=== PATIENT | female | born 1960 | race Caucasian/White ===

== ENCOUNTER 2016-08-26 12:07 | Emergency (ER) | payer OTHER ==
[2016-08-26 12:35] LABS: BILIRUBIN NEGATIVE (NEGATIVE); BLOOD 1+ Ery/uL (NEGATIVE); CLARITY CLEAR (CLEAR); COLOR YELLOW (YELLOW); GLUCOSE (U) NORMAL (NORMAL); KETONE (U) NEGATIVE (NEGATIVE); LEUKOCYTES 3+ Leu/uL (NEGATIVE); NITRITE NEGATIVE (NEGATIVE); PROTEIN NEGATIVE (NEGATIVE); SPECIFIC GRAVITY 1.015 (1.001-1.030); UROBILINOGEN 0.2 mg/dL (0.2-1.0)
[2016-08-26 12:45] LABS: BACTERIA 1+; URINARY WBC 20-50
[2016-08-26 12:46] LABS: MUCOUS TRACE
[2016-08-26 12:47] LABS: AMPHETAMINES NEGATIVE (NEGATIVE); BARBITURATES NEGATIVE (NEGATIVE); BENZODIAZEPINES NEGATIVE (NEGATIVE); COCAINE NEGATIVE (NEGATIVE); MARIJUANA (THC) NEGATIVE (NEGATIVE); METHADONE NEGATIVE (NEGATIVE); TRICYCLIC ANTIDEPRESSANT NEGATIVE (NEGATIVE)
== END 2016-08-26 13:31 | disposition home or self-care (01) ==
LOC: FER 12:07
PROVIDERS: Nurse Practitioner
DX: N30.91 Cystitis, unspecified with hematuria (principal); I11.9 Hypertensive heart disease without heart failure; Z79.82 Long term (current) use of aspirin; Z79.01 Long term (current) use of anticoagulants; Z79.899 Other long term (current) drug therapy
CPT/HCPCS: 80305; 81001; 87804; 87899; 99283

== ENCOUNTER → 2017-02-26 | Day surgery (SDC) | payer OTHER ==
[~2017-02-26] VITALS: Ht 162.6 cm; Wt 94.5 kg
[2017-02-26 11:52] LABS: HCT 36.3 % (37.0-47.0); HGB 11.1 g/dl (12.5-16.0); MCHC 30.6 g/dL (32.0-36.0); MPV 11.9 fL (6.0-9.5); RBC 4.27 M/uL (4.20-5.40); RDW 17.3 % (11.5-14.0); WBC 8.8 K/uL (4.0-10.5)
[2017-02-26 12:09] LABS: CREATININE 0.7 mg/dL (0.5-1.0); POTASSIUM 4.6 mmol/L (3.5-5.1)
== END | disposition home or self-care (01) ==
LOC: FAS 11:14
PROVIDERS: Legal Medicine
DX: M75.122 Complete rotator cuff tear or rupture of left shoulder, not specified as traumatic (principal); M75.42 Impingement syndrome of left shoulder; M19.012 Primary osteoarthritis, left shoulder; Z95.1 Presence of aortocoronary bypass graft; Z90.49 Acquired absence of other specified parts of digestive tract; Z79.82 Long term (current) use of aspirin; Z79.02 Long term (current) use of antithrombotics/antiplatelets; Z79.899 Other long term (current) drug therapy; Z98.890 Other specified postprocedural states
CPT/HCPCS: 36415; 80048; 93005; C1713; J0131; J0690; J2405; J2704; J2795; J3010

== ENCOUNTER 2020-08-23 18:01 | Emergency (ER) | payer OTHER ==
[~2020-08-23 18:01] MED LIST: AUGMENTIN 875-1 EACH PO; AZITHROMYCIN250 MG PO; ISOSORBIDE MON120 MG PO; MEDROL 4MG DOSEP4 MG PO; NITROQUIK SL0.4 MG SL; PLAVIX75 MG PO; RANEXA1000 MG PO; SYNTHROID25 MCG PO; TOPROL XL 25MG25 MG PO
[2020-08-23 18:39] LABS: BILIRUBIN NEGATIVE (NEGATIVE); BLOOD NEGATIVE Ery/uL (NEGATIVE); CLARITY CLEAR (CLEAR); COLOR YELLOW (YELLOW); GLUCOSE (U) NORMAL (NORMAL); LEUKOCYTES 1+ Leu/uL (NEGATIVE); NITRITE NEGATIVE (NEGATIVE); PROTEIN NEGATIVE (NEGATIVE); SPECIFIC GRAVITY 1.015 (1.001-1.030); UROBILINOGEN 0.2 mg/dL (0.2-1.0)
[2020-08-23 18:48] LABS: BACTERIA 2+; MUCOUS TRACE
[2020-08-23 19:19] LABS: BASOPHIL 0.3 % (0-2); EOSINOPHIL 0.4 % (0-5); HCT 39.9 % (37.0-47.0); HGB 12.4 g/dl (12.5-16.0); MCH 27.3 pg (25.0-31.0); MCHC 31.1 g/dL (32.0-36.0); MCV 87.7 fL (78.0-100.0); MONOCYTE 3.6 % (0-12); MPV 12.2 fL (6.0-9.5); NRBC 0; PLT 232 K/uL (150-400); RBC 4.55 M/uL (4.20-5.40); RDW 19.4 % (11.5-14.0); WBC 23.5 K/uL (4.0-10.5)
[2020-08-23 19:20] LABS: NEUTROPHIL 87.1 % (41-80)
[2020-08-23 19:29] LABS: BUN/CREAT RATIO (CALC) 20.2 RATIO; CREATININE 0.89 mg/dL (0.51-0.95); POTASSIUM 3.9 mmol/L (3.5-5.1)
[2020-08-23] MEDS ORDERED: BACTRIM DS TAB1 EACH PO (20:06)
== END 2020-08-23 20:16 | disposition home or self-care (01) ==
LOC: FER 18:01
PROVIDERS: Emergency Medicine; Nurse Practitioner Family
DX: N39.0 Urinary tract infection, site not specified (principal); I10 Essential (primary) hypertension; Z95.1 Presence of aortocoronary bypass graft; Z95.5 Presence of coronary angioplasty implant and graft
CPT/HCPCS: 36415; 80048; 81001; 85025; 87088; 99283; J0696

== ENCOUNTER 2021-03-16 12:19 | Emergency (ER) | payer OTHER ==
[~2021-03-16 12:19] MED LIST changes: +BACTRIM DS TAB1 EACH PO
[2021-03-16 12:45] LABS: BILIRUBIN NEGATIVE (NEGATIVE); BLOOD NEGATIVE Ery/uL (NEGATIVE); CLARITY CLEAR (CLEAR); COLOR YELLOW (YELLOW); GLUCOSE (U) NORMAL (NORMAL); LEUKOCYTES 1+ Leu/uL (NEGATIVE); NITRITE NEGATIVE (NEGATIVE); PROTEIN NEGATIVE (NEGATIVE); SPECIFIC GRAVITY 1.015 (1.001-1.030); UROBILINOGEN 0.2 mg/dL (0.2-1.0); pH 6.5 (5.0-9.0)
[2021-03-16 12:53] LABS: BACTERIA TRACE; TRANSITIONAL EPITHELIAL CELLS RARE; URINARY RBC RARE
[2021-03-16 13:56] LABS: BASOPHIL 0.4 % (0-2); EOSINOPHIL 2.2 % (0-5); HCT 41.3 % (37.0-47.0); HGB 12.8 g/dl (12.5-16.0); LYMPHOCYTE 23.3 % (15-48); MCH 30.2 pg (25.0-31.0); MCV 97.4 fL (78.0-100.0); MONOCYTE 11.9 % (0-12); MPV 11.3 fL (6.0-9.5); NEUTROPHIL 60.7 % (41-80); NRBC 0; PLT 226 K/uL (150-400); RBC 4.24 M/uL (4.20-5.40); RDW 14.7 % (11.5-14.0); WBC 10.1 K/uL (4.0-10.5)
[2021-03-16 14:17] LABS: BUN/CREAT RATIO (CALC) 19.4 RATIO; CREATININE 0.72 mg/dL (0.51-0.95); POTASSIUM 4.1 mmol/L (3.5-5.1)
[2021-03-16] MEDS ORDERED: BACTRIM DS TAB1 EACH PO (14:41)
== END 2021-03-16 14:53 | disposition home or self-care (01) ==
LOC: FER 12:19
PROVIDERS: Internal Medicine
DX: N20.0 Calculus of kidney (principal); N39.0 Urinary tract infection, site not specified; I11.0 Hypertensive heart disease with heart failure; I50.9 Heart failure, unspecified; Z79.899 Other long term (current) drug therapy
CPT/HCPCS: 36415; 80048; 81001; 85025; J0696